=== PATIENT | female | born 1965 | race Two or more races ===

== ENCOUNTER 2019-08-19 09:23 | Outpatient (CLI) | payer OTHER | END 2019-08-19 09:35 | disposition home or self-care (01) | LOC: NUCLEAR 09:23 | DX: I11.9 Hypertensive heart disease without heart failure (principal); I28.0 Arteriovenous fistula of pulmonary vessels; M47.22 Other spondylosis with radiculopathy, cervical region; M54.2 Cervicalgia ==

== ENCOUNTER 2019-08-27 09:51 | Outpatient (CLI) | payer OTHER | END 2019-08-27 10:00 | disposition home or self-care (01) | LOC: MAMO-SONO 09:51 | DX: E04.8 Other specified nontoxic goiter (principal) ==

== ENCOUNTER 2021-07-03 07:30 | Outpatient (CLI) | payer OTHER | END 2021-07-03 07:32 | disposition home or self-care (01) | LOC: NUCLEAR 07:30 | PROVIDERS: ATTEND Specialist | DX: M06.4 Inflammatory polyarthropathy (principal) | CPT/HCPCS: 78315; A9503 ==

== ENCOUNTER 2021-07-03 08:57 | Outpatient (CLI) | payer OTHER | END 2021-07-03 08:58 | disposition home or self-care (01) | LOC: RAD 08:57 | PROVIDERS: ATTEND Specialist | DX: I10 Essential (primary) hypertension (principal) ==

== ENCOUNTER 2022-02-28 07:39 | Outpatient (CLI) | payer OTHER | END 2022-02-28 07:41 | disposition home or self-care (01) | LOC: SONOGRAMA 07:39 | PROVIDERS: ATTEND Internal Medicine Endocrinology, Diabetes & Metabolism | DX: E06.3 Autoimmune thyroiditis (principal); E04.2 Nontoxic multinodular goiter ==

== ENCOUNTER 2022-03-27 08:06 | Outpatient (CLI) | payer OTHER | END 2022-03-27 08:09 | disposition home or self-care (01) | LOC: SONOGRAMA 08:06 | PROVIDERS: ATTEND Pathology Anatomic Pathology & Clinical Pathology | DX: E04.8 Other specified nontoxic goiter (principal); D34 Benign neoplasm of thyroid gland; E04.1 Nontoxic single thyroid nodule ==

== ENCOUNTER 2022-05-28 07:08 | Outpatient (CLI) | payer OTHER | END 2022-05-28 07:23 | disposition home or self-care (01) | LOC: SONOGRAMA 07:08 | PROVIDERS: ATTEND Internal Medicine | DX: R10.11 Right upper quadrant pain (principal) ==

== ENCOUNTER → 2023-09-09 08:00 | Outpatient (CLI) | payer OTHER | END | disposition home or self-care (01) | LOC: MAMO-SONO 08:00 | PROVIDERS: ATTEND Specialist | DX: M81.0 Age-related osteoporosis without current pathological fracture (principal); Z12.39 Encounter for other screening for malignant neoplasm of breast; Z13.820 Encounter for screening for osteoporosis; N60.39 Fibrosclerosis of unspecified breast ==

== ENCOUNTER → 2023-09-09 | Outpatient (CLI) | payer OTHER | END | disposition home or self-care (01) | LOC: NUCLEAR 10:36 | PROVIDERS: ATTEND Specialist | DX: M81.0 Age-related osteoporosis without current pathological fracture (principal); Z13.820 Encounter for screening for osteoporosis ==

== ENCOUNTER 2024-03-16 11:07 | Outpatient (CLI) | payer OTHER | END 2024-03-16 11:17 | disposition home or self-care (01) | LOC: MAMO-SONO 11:07 | PROVIDERS: ATTEND Obstetrics & Gynecology | DX: N60.12 Diffuse cystic mastopathy of left breast (principal) ==